=== PATIENT | female | born 1995 ===

== ENCOUNTER 2017-11-17 01:47 | Emergency (ER) | payer MEDICAID ==
[2017-11-17 01:57] VITALS: BMI 28.3
[2017-11-17 02:04] VITALS: BP 138/56; PULSE 84; RESP 16; TEMP 97.6; O2SAT 99
[2017-11-17] MEDS ORDERED: Sodium Chloride 0.9% 1,000 ML IV STA (02:28)
--- NOTE | 2017-11-17 02:57 | ED PDOC ---
HPI: General Adult Time Seen by Provider: 11/17/17 02:07 Chief Complaint (Nursing): ENT Problem History Per: Patient History/Exam Limitations: no limitations Additional Complaint(s): 22 y/o F presents to ED c/o neck pain that began 5 days ago. Pain is described as sharp, initiates on posterior aspect of neck; radiates to anterior neck, upper and lower back; progressively aggravated and associated with painful neck movement. Pt explains that her current pain is 10/10 intensity, woke her up while sleeping tonight and prompted her to ED immediately. Pt used OTC Ibuprofen with very minimal improvement. Pt also reports gaining 25 lbs in the last 6 months, aggravating fatigue, mild dysphagia, and vomiting 3x yesterday. Pt also reports significant amount of stress due to family and college responsibilities. Pt was recently evaluated by ophthalmology due to blurry vision. Pt believes her tonsils are enlarged. Pt also reports constipation for several months, currently using herbal-life supplements with improvement of stool caliber. No recent travel or ill contact Pt denies headache, fever, cough , nasal congestion, CP, SOB, rash or peripheral edema. Allergies: Shelfish. PMHx: Liver hemangioma, thyroid nodule. 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 Bleeding last 3-5 days and can be light to excessive amount. PSHx: 1 . FHx: HTN, DM 2, HLD and CVA on mother, father of [place] during his 40s. SHx: No tobacco, alcohol or rec drugs. Past Medical History Vital Signs: Last Vital Signs Temp 97.6 F 11/17/17 01:57 Pulse 84 11/17/17 01:57 Resp 16 11/17/17 01:57 BP 138/56 L 11/17/17 01:57 Pulse Ox 99 11/17/17 04:10 - Medical History PMH: Anemia (IRON DEFIENCY), Asthma, Cardia Arrhythmia (SVT? s/p ablation? "irregular heart beat"), Gastritis, Migraine - Surgical History Surgical History: - Family History Family History: States: Unknown Family Hx - Living Arrangements Living Arrangements: With Family - Social History Current smoker - smoking cessation education provided: No Ex-Smoker (has not smoked in the last 12 months): No Alcohol: None Drugs: Denies - Immunization History Hx Tetanus Toxoid Vaccination: No Hx Influenza Vaccination: Yes Hx Pneumococcal Vaccination: No - Home Medications Home Medications: Ambulatory Orders Medication Instructions Recorded Amoxicillin/Clavulanate [Augmentin 1 tab PO 01/18/17 875 MG-125 MG] predniSONE [Prednisone] 20 mg PO 01/18/17 traMADol [Ultram] 50 mg PO TID #10 tab 01/18/17 Cyclobenzaprine [Cyclobenzaprine 10 mg PO TID PRN #15 tab 11/17/17 HCl] - Allergies Allergies/Adverse Reactions: Allergies Allergy/AdvReac Type Severity Reaction Status Date / Time shellfish derived Allergy URTICARIA Verified 11/17/17 01:57 Review of Systems Constitutional: Negative for: Fever, Chills, Sweats Eyes: Positive for: Vision Change. Negative for: Pain ENT: Negative for: Ear Pain, Ear Discharge Cardiovascular: Negative for: Chest Pain, Palpitations Respiratory: Negative for: Shortness of Breath Gastrointestinal: Negative for: Nausea, Vomiting, Abdominal Pain Genitourinary Female: Negative for: Dysuria, Frequency Musculoskeletal: Positive for: Neck Pain, Shoulder Pain, Back Pain Skin: Negative for: Rash, Lesions Neurological: Negative for: Weakness, Confusion Psych: Negative for: Anxiety, Depression Physical Exam - Physical Exam Appears: Positive for: Well, Non-toxic, No Acute Distress Head Exam: Positive for: ATRAUMATIC, NORMAL INSPECTION Skin: Positive for: Normal Color Eye Exam: Positive for: EOMI, PERRL ENT: Positive for: Normal ENT Inspection. Negative for: Pharynx Is, Sinus Pain/ Drainage, Tonsillar Exudate, Tonsillar Swelling Neck: Positive for: Decreased ROM, Limited ROM (No lymphadenopathy. ), Pain On Movement Of Neck Cardiovascular/Chest: Positive for: Regular Rate, Rhythm Respiratory: Positive for: Normal Breath Sounds Gastrointestinal/Abdominal: Positive for: Normal Exam, Bowel Sounds, Soft. Negative for: Tenderness Back: Positive for: Normal Inspection, Vertebral Tenderness, Decreased ROM Neurologic/Psych: Positive for: Alert, Oriented - Laboratory Results Result Diagrams: 11/17/17 03:06 11/17/17 03:06 - ECG O2 Sat by Pulse Oximetry: 99 Medical Decision Making Medical Decision Makin22 y/o F for evaluation and management of neck pain. Plan: -CBC -CMP -TSH -Influenza A/B rapid test -Mononucleosis -IV NSS -Flexeril -TOradol 03:20 CBC. CMP, influenza and mononucleosis were WNL. Pain has decreased from 10 /10 to 8/10 intensity. 04:00 TSH WNL. Will discharge pt with Rx for Flexeril for pain, side effects discussed with pt. Pt was counseled on the most probable etiologies: viral URI and myalgia Pt instructed to follow conservative management, increased warm fluids. Disposition - Clinical Impression Clinical Impression: Myalgia, Pharyngitis - Patient ED Disposition Is Patient to be Admitted: No - Disposition Disposition: Routine/Home Disposition Time: 04:07 Condition: GOOD Prescriptions: Cyclobenzaprine [Cyclobenzaprine HCl] 10 mg PO TID PRN #15 tab PRN Reason: Muscle Pain Instructions: Pharyngitis (ED), Musculoskeletal Pain (ED) Forms: [facility] (Mongolian) Print Language: BURMESE
[2017-11-17 03:10] LABS: BASO # 0.1 K/uL (0.0-0.2); BASO % 0.6 % (0.0-2.0); EOS # 0.2 K/uL (0.0-0.7); LYMPH # 3.3 K/uL (1.0-4.3); LYMPH % 31.5 % (20.0-40.0); MEAN CELL VOLUME 81.7 fl (81.0-99.0); MEAN CORPUSCULAR HEMOGLOBIN 26.9 pg (27.0-31.0); MEAN PLATELET VOLUME 9.5 fl (7.2-11.7); MONO # 0.8 K/uL (0.0-0.8); MONO % 7.6 % (0.0-10.0); NEUT # 6.1 K/uL (1.8-7.0); NEUT % 58.3 % (50.0-75.0); RBC 4.44 Mil/uL (3.80-5.20); WHITE BLOOD COUNT 10.4 K/uL (4.8-10.8)
[2017-11-17 03:25] LABS: ALB/GLOB RATIO 1.3 (1.0-2.1); ALBUMIN 4.3 g/dL (3.5-5.0); ALT/SGPT 27 U/L (9-52); AST/SGOT 23 U/L (14-36); BLOOD UREA NITROGEN 15 mg/dl (7-17); CALCIUM 9.2 mg/dL (8.4-10.2); GFR AFRICAN-AMERICAN > 60; GFR NON-AFRICAN AMERICAN > 60
== END 2017-11-17 04:30 | disposition home or self-care (01) ==
LOC: H.ER 01:47
DX: J02.9 Acute pharyngitis, unspecified (principal); M79.1 Myalgia; R13.10 Dysphagia, unspecified; Z82.3 Family history of stroke
CPT/HCPCS: 80053; 81025; 84443; 85025; 86308; 87804; 96361; 96374; 99282; J1885; J7040

== ENCOUNTER 2018-03-28 23:29 | Emergency (ER) | payer MEDICAID ==
[2018-03-28 23:30] VITALS: BMI 28.3
--- NOTE | 2018-03-29 00:28 | ED PDOC ---
Syncope/Near Syncope/Dizziness History Per: Patient History/Exam Limitations: no limitations Onset/Duration Of Symptoms: Hrs Current Symptoms Are (Timing): Still Present Associated Symptoms Preceding Syncopal Episode: Vertigo Severity: Moderate Additional Complaint(s): CC: generalized weakness and dizziness HPI: 22 YO female with PMH of migraine headaches presents to [facility] ED for generalized subjective weakness and dizziness. Pt feels weakness all over her body. Pt states that she had felt dizziness since this morning. Shes feels like she does not have her normal balance, feels off. Additionally, pt feels fullness in her ears bilaterally, and ringing in both of her ears bilaterally. Pt states that when she drives her car and makes a U-tern her dizziness worsens. No LOC, no trauma to head, no hx of intercranial pathology. Denies chest pain, dyspnea, n/v/d/c and fevers. No hx of recent infections. PMH: migraine headache, liver hemangioma SurgH: SH: denies ETOH, smoking and illicit drug use FH: HTN, CAD, DM- [place] father Allergies: NKDA, shellfish allergy Meds: none <Yu Theodore - Last Filed: 03/29/18 03:45> <Jass Mancera - Last Filed: 03/29/18 04:03> Time Seen by Provider: 03/28/18 23:44 Chief Complaint (Nursing): Dizziness/Lightheaded Supervising Attending Note - Supervising Attending Note The Documented history was done by the: Physician Log Yard Manager The documented physical exam was done by the: Physician Log Yard Manager - Attestation: I have personally seen and examined this patient.: Yes I have fully participated in the care of the patient.: Yes I have reviewed all pertinent clinical information: Yes <Jass Mancera - Last Filed: 03/29/18 04:03> Past Medical History Vital Signs: Last Vital Signs Temp 98.4 F 03/28/18 23:32 Pulse 85 03/28/18 23:32 Resp 18 03/28/18 23:32 BP 108/71 03/28/18 23:32 Pulse Ox 99 03/28/18 23:32 - Medical History PMH: Anemia (IRON DEFIENCY), Asthma, Cardia Arrhythmia (SVT? s/p ablation? "irregular heart beat"), Gastritis, Migraine - Surgical History Surgical History: - Family History Family History: States: Stroke, [place], Diabetes, Hypertension - Social History Current smoker - smoking cessation education provided: No Alcohol: None Drugs: Denies - Immunization History Hx Tetanus Toxoid Vaccination: No Hx Influenza Vaccination: Yes Hx Pneumococcal Vaccination: No <Yu Theodore - Last Filed: 03/29/18 03:45> Vital Signs: Last Vital Signs Temp 97.9 F 03/29/18 02:11 Pulse 76 03/29/18 02:11 Resp 14 03/29/18 02:11 BP 129/71 03/29/18 02:11 Pulse Ox 99 03/29/18 03:46 <Jass Mancera - Last Filed: 03/29/18 04:03> - Home Medications Home Medications: Ambulatory Orders Medication Instructions Recorded Amoxicillin/Clavulanate [Augmentin 1 tab PO 01/18/17 875 MG-125 MG] predniSONE [Prednisone] 20 mg PO 01/18/17 traMADol [Ultram] 50 mg PO TID #10 tab 01/18/17 Cyclobenzaprine [Cyclobenzaprine 10 mg PO TID PRN #15 tab 11/17/17 HCl] Meclizine [Antivert] 25 mg PO Q6 PRN #16 tab 03/29/18 - Allergies Allergies/Adverse Reactions: Allergies Allergy/AdvReac Type Severity Reaction Status Date / Time shellfish derived Allergy URTICARIA Verified 03/28/18 23:31 Review of Systems Constitutional: Negative for: Fever, Chills Eyes: Negative for: Pain, Vision Change ENT: Positive for: Other (ear fullness and tinnitis ). Negative for: Ear Pain, Ear Discharge Cardiovascular: Negative for: Chest Pain, Palpitations Respiratory: Negative for: Cough, Shortness of Breath Gastrointestinal: Negative for: Nausea, Vomiting, Abdominal Pain, Diarrhea Genitourinary Female: Negative for: Dysuria, Frequency Musculoskeletal: Positive for: Neck Pain Skin: Negative for: Rash Neurological: Positive for: Weakness, Dizziness. Negative for: Headache <Yu Theodore - Last Filed: 03/29/18 03:45> Physical Exam - Physical Exam Appears: Positive for: No Acute Distress Head Exam: Positive for: ATRAUMATIC, NORMOCEPHALIC Skin: Positive for: Normal Color, Warm, Dry Eye Exam: Positive for: Normal appearance ENT: Positive for: Normal ENT Inspection, TM Is/Are (normal b/l ) Neck: Positive for: Normal Cardiovascular/Chest: Positive for: Regular Rate, Rhythm. Negative for: Murmur Respiratory: Positive for: Normal Breath Sounds Gastrointestinal/Abdominal: Positive for: Normal Exam, Bowel Sounds, Soft. 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 -Blood work -urine dip -IV fluids -Mecalzine -Tylenol Uprg neg and urine dip neg. VS stable Blood work appreciated and reviewed with pt, wnl. Pt feeling better after meclazine Will d/c pt home with PO meds Follow up with MD in 1 week Plan reviewed with pt and she agrees with plan <Yu Theodore - Last Filed: 03/29/18 03:45> - Laboratory Results Result Diagrams: 03/29/18 00:30 03/29/18 00:30 <Jass Mancera - Last Filed: 03/29/18 04:03> Disposition - Disposition Disposition Time: 02:40 <Yu Theodore - Last Filed: 03/29/18 03:45> <Jass Mancera - Last Filed: 03/29/18 04:03> - Clinical Impression Clinical Impression: Vertigo - Disposition Referrals: [facility] [Outside] Condition: STABLE Prescriptions: Meclizine [Antivert] 25 mg PO Q6 PRN #16 tab PRN Reason: Dizziness Instructions: Vertigo (a Type of Dizziness) Forms: [employer] [facility] (Welsh)
[2018-03-29] MEDS ORDERED: Sodium Chloride 0.9% 1,000 ML IV SCH (00:30)
[2018-03-29 00:46] LABS: BASO # 0.1 K/uL (0.0-0.2); EOS # 0.2 K/uL (0.0-0.7); EOS % 1.8 % (0.0-4.0); HEMOGLOBIN 11.8 g/dL (12.0-16.0); LYMPH # 3.5 K/uL (1.0-4.3); LYMPH % 32.9 % (20.0-40.0); MEAN CELL VOLUME 82.5 fl (81.0-99.0); MEAN CORPUSCULAR HEMOGLOBIN 27.2 pg (27.0-31.0); MEAN PLATELET VOLUME 9.4 fl (7.2-11.7); MONO # 0.8 K/uL (0.0-0.8); MONO % 7.2 % (0.0-10.0); NEUT % 57.1 % (50.0-75.0); NRBC % 0.1 % (0.0-0.0); RBC 4.34 Mil/uL (3.80-5.20); RED CELL DISTRIBUTION WIDTH 13.4 % (11.5-14.5); WHITE BLOOD COUNT 10.5 K/uL (4.8-10.8)
[2018-03-29 00:57] LABS: ALBUMIN 3.9 g/dL (3.5-5.0); BLOOD UREA NITROGEN 16 mg/dl (7-17); CALCIUM 8.6 mg/dL (8.4-10.2); GFR AFRICAN-AMERICAN > 60; GFR NON-AFRICAN AMERICAN > 60
[2018-03-29 00:58] LABS: ALB/GLOB RATIO 1.1 (1.0-2.1); ALT/SGPT 29 U/L (9-52); AST/SGOT 24 U/L (14-36)
[2018-03-29 02:12] VITALS: BP 129/71; PULSE 76; RESP 14; TEMP 97.9
[2018-03-29 03:46] VITALS: O2SAT 99
== END 2018-03-29 02:12 | disposition home or self-care (01) ==
LOC: H.ER 23:29
DX: R42 Dizziness and giddiness (principal); J45.909 Unspecified asthma, uncomplicated; Z82.49 Family history of ischemic heart disease and other diseases of the circulatory system; Z83.3 Family history of diabetes mellitus
CPT/HCPCS: 80053; 81025; 85025; 96360; 99284; J7040

== ENCOUNTER 2018-06-24 16:18 | Emergency (ER) | payer MEDICAID ==
[2018-06-24 16:18] VITALS: BMI 28.3
[2018-06-24 16:30] VITALS: BP 114/76; PULSE 79; RESP 17; TEMP 98.2; O2SAT 100
[2018-06-24 17:51] LABS: BASO # 0.1 K/uL (0.0-0.2); BASO % 0.7 % (0.0-2.0); EOS # 0.1 K/uL (0.0-0.7); EOS % 1.2 % (0.0-4.0); HEMOGLOBIN 11.8 g/dL (12.0-16.0); LYMPH # 2.1 K/uL (1.0-4.3); LYMPH % 24.7 % (20.0-40.0); MEAN CELL VOLUME 82.9 fl (81.0-99.0); MEAN CORPUSCULAR HEMOGLOBIN 27.4 pg (27.0-31.0); MEAN CORPUSCULAR HGB CONC 33.1 g/dL (33.0-37.0); MEAN PLATELET VOLUME 9.3 fl (7.2-11.7); MONO # 0.6 K/uL (0.0-0.8); NEUT # 5.7 K/uL (1.8-7.0); NEUT % 66.4 % (50.0-75.0); RBC 4.31 Mil/uL (3.80-5.20); RED CELL DISTRIBUTION WIDTH 13.7 % (11.5-14.5); WHITE BLOOD COUNT 8.6 K/uL (4.8-10.8)
[2018-06-24 18:27] LABS: BLOOD UREA NITROGEN 13 mg/dl (7-17); CALCIUM 8.8 mg/dL (8.4-10.2); GFR NON-AFRICAN AMERICAN > 60
--- NOTE | 2018-06-24 18:44 | ED PDOC ---
HPI: General Adult Time Seen by Provider: 06/24/18 16:49 Chief Complaint (Nursing): Dizziness/Lightheaded Chief Complaint (Provider): abdominal pain, vomiting and mild headache History Per: Patient History/Exam Limitations: no limitations Onset/Duration Of Symptoms: Days Current Symptoms Are (Timing): Still Present Additional Complaint(s): 23 year old female presents to the ED for lower abdominal pain, vomiting and mild headache onset for 3 days. Patient states the pain is intermittent and she vomited once and the headache is associated with dizziness. Also reports the dizziness becomes worse with movement. She took a test at home which presented positive. She denies thunderclap headache, weakness, numbness, urinary problems, back pain, virginal bleeding or discharge. PMD: No Family Provider Past Medical History Reviewed: Historical Data, Nursing Documentation, Vital Signs Vital Signs: Last Vital Signs Temp 98.2 F 06/24/18 16:26 Pulse 79 06/24/18 16:26 Resp 17 06/24/18 16:26 BP 114/76 06/24/18 16:26 Pulse Ox 100 06/25/18 04:27 - Medical History PMH: Anemia (IRON DEFIENCY), Asthma, Cardia Arrhythmia (SVT? s/p ablation? "irregular heart beat"), Gastritis, Migraine - Surgical History Surgical History: - Family History Family History: States: Unknown Family Hx, Stroke, MS, Diabetes, Hypertension - Immunization History Hx Tetanus Toxoid Vaccination: No Hx Influenza Vaccination: Yes Hx Pneumococcal Vaccination: No - Home Medications Home Medications: Ambulatory Orders Medication Instructions Recorded Amoxicillin/Clavulanate [Augmentin 1 tab PO 01/18/17 875 MG-125 MG] predniSONE [Prednisone] 20 mg PO 01/18/17 traMADol [Ultram] 50 mg PO TID #10 tab 01/18/17 Cyclobenzaprine [Cyclobenzaprine 10 mg PO TID PRN #15 tab 11/17/17 HCl] Meclizine [Antivert] 25 mg PO Q6 PRN #16 tab 03/29/18 - Allergies Allergies/Adverse Reactions: Allergies Allergy/AdvReac Type Severity Reaction Status Date / Time shellfish derived Allergy URTICARIA Verified 06/24/18 16:26 Review of Systems ROS Statement: Except As Marked, All Systems Reviewed And Found Negative Gastrointestinal: Positive for: Vomiting (one episode ), Abdominal Pain ( suprapubic ) Genitourinary Female: Negative for: Dysuria, Incontinence, Vaginal Discharge, Vaginal Bleeding Musculoskeletal: Negative for: Back Pain Neurological: Positive for: Headache (mild). Negative for: Weakness, Numbness Physical Exam - Reviewed Nursing Documentation Reviewed: Yes Vital Signs Reviewed: Yes - Physical Exam Appears: Positive for: Well, Non-toxic, No Acute Distress Head Exam: Positive for: ATRAUMATIC, NORMAL INSPECTION, NORMOCEPHALIC Skin: Positive for: Normal Color, Warm, Dry Eye Exam: Positive for: EOMI, Normal appearance, PERRL ENT: Positive for: Normal ENT Inspection Neck: Positive for: Normal, Painless ROM, Supple. Negative for: Decreased ROM Cardiovascular/Chest: Positive for: Regular Rate, Rhythm. Negative for: Murmur Respiratory: Positive for: Normal Breath Sounds. Negative for: Decreased Breath Sounds, Wheezing, Respiratory Distress Gastrointestinal/Abdominal: Positive for: Normal Exam, Bowel Sounds, Soft. Negative for: Tenderness, Guarding, Rebound Back: Positive for: Normal Inspection. Negative for: L CVA Tenderness, R CVA Tenderness Extremity: Positive for: Normal ROM. Negative for: Tenderness, Pedal Edema, Deformity Neurologic/Psych: Positive for: Alert, Oriented (x3) - Laboratory Results Result Diagrams: 06/24/18 17:40 06/24/18 17:40 - ECG O2 Sat by Pulse Oximetry: 100 (RA) Pulse Ox Interpretation: Normal Medical Decision Making Medical Decision Making: Time: 1729 Initial Impression: headache with dizziness and lower abdominal pain Differential Diagnosis includes but is not limited to: with complications, peripheral vertigo, anemia, cardiac arrhythmia, UTI Initial Plan: --Head w/o Contrast [CT] --EKG --BMP -- Serum --Dipstick --CBC w/ Differential --Tylenol 650mg --Reevaluation Time: 1899 Patient signed out to Dr. Mancera pending US, reevaluation and disposition Scribe Attestation: Documented by Mala Preston, acting as a scribe for Jonh Koroma MD Provider Scribe Attestation: All medical record entries made by the Scribe were at my direction and personally dictated by me. I have reviewed the chart and agree that the record accurately reflects my personal performance of the history, physical exam, medical decision making, and the department course for this patient. I have also personally directed, reviewed, and agree with the discharge instructions and disposition. Disposition - Clinical Impression Clinical Impression: Abdominal pain, Headache - Patient ED Disposition Is Patient to be Admitted: Transfer of Care Counseled Patient/Family Regarding: Studies Performed, Diagnosis - Disposition Disposition: Transfer of Care Disposition Time: 19:00 Condition: STABLE Instructions: Headache, Adult Patient Signed Over To: Jass Mancera (pending CT, reevaluation, disposition )
[2018-06-24] MEDS ORDERED: Sodium Chloride 0.9% 1,000 ML IV STA (18:48)
--- NOTE | 2018-06-24 19:54 | ED PDOC ---
- Laboratory Results Result Diagrams: 06/24/18 17:40 06/24/18 17:40 - ECG O2 Sat by Pulse Oximetry: 100 (RA) Pulse Ox Interpretation: Normal Medical Decision Making Medical Decision Making: Time: 1899 Patient endorsed to me by Dr. Koroma pending CT, reevaluation and disposition Time: 1955 CT Head Without Intravenous Contrast EXAM DATE/TIME: 06/24/2018 5:30 PM CLINICAL HISTORY: 23 years old, female; Pain; Headache; Headache not specified; Additional info: Dizziness headaches TECHNIQUE: Axial computed tomography images of the head/brain without intravenous contrast. All CT scans at this facility use at least one of these dose optimization techniques: automated exposure control; mA and/or kV adjustment per patient size (includes targeted exams where dose is matched to clinical indication); or iterative reconstruction. Coronal and sagittal reformatted images were created and reviewed. COMPARISON: No relevant prior studies available. FINDINGS: Brain: Unremarkable. No hemorrhage. No significant white matter disease. No edema. Ventricles: Unremarkable. No ventriculomegaly. Bones/joints: Unremarkable. No acute fracture. Soft tissues: Unremarkable. Sinuses: Unremarkable as visualized. No acute sinusitis. Mastoid air cells: Unremarkable as visualized. No mastoid effusion. IMPRESSION: Unremarkable noncontrast CT of the brain. Patient showed improvement of symptoms and diagnosed with headache and dizziness. Patient will be discharged and advised to follow-up with PMD within 1 -2 days. Scribe Attestation: Documented by Mala Preston, acting as a scribe for Jass Mancera MD Provider Scribe Attestation: All medical record entries made by the Scribe were at my direction and personally dictated by me. I have reviewed the chart and agree that the record accurately reflects my personal performance of the history, physical exam, medical decision making, and the department course for this patient. I have also personally directed, reviewed, and agree with the discharge instructions and disposition. Disposition - Clinical Impression Clinical Impression: Abdominal pain, Headache - POA Present On Arrival: None - Disposition Disposition: Routine/Home Disposition Time: 21:00 Condition: STABLE Instructions: Headache, Adult Forms: [facility] (Tamazight)
--- NOTE | 2018-06-24 19:57 | CT ---
EXAM: CT Head Without Intravenous Contrast EXAM DATE/TIME: 06/24/2018 5:30 PM CLINICAL HISTORY: 23 years old, female; Pain; Headache; Headache not specified; Additional info: Dizziness headaches TECHNIQUE: Axial computed tomography images of the head/brain without intravenous contrast. All CT scans at this facility use at least one of these dose optimization techniques: automated exposure control; mA and/or kV adjustment per patient size (includes targeted exams where dose is matched to clinical indication); or iterative reconstruction. Coronal and sagittal reformatted images were created and reviewed. COMPARISON: No relevant prior studies available. FINDINGS: Brain: Unremarkable. No hemorrhage. No significant white matter disease. No edema. Ventricles: Unremarkable. No ventriculomegaly. Bones/joints: Unremarkable. No acute fracture. Soft tissues: Unremarkable. Sinuses: Unremarkable as visualized. No acute sinusitis. Mastoid air cells: Unremarkable as visualized. No mastoid effusion. IMPRESSION: Unremarkable noncontrast CT of the brain.
--- NOTE | 2018-06-25 09:16 | CARD ---
APPROVED REPORT Date of service: 06/24/2018 EKG Measurement Heart [id number] <Conclusion> Normal sinus rhythm Normal ECG
== END 2018-06-24 20:20 | disposition home or self-care (01) ==
LOC: H.ER 16:18
DX: R10.9 Unspecified abdominal pain (principal); R51 Headache; J45.909 Unspecified asthma, uncomplicated
CPT/HCPCS: 70450; 80048; 84702; 85025; 93005; 96374; 96375; 99284; J1885; J2765; J7030